=== PATIENT | female | born 1995 | race American Indian/Alaskan Native ===

== ENCOUNTER 2017-02-04 08:17 | Emergency (ER) | payer OTHER ==
[2017-02-04 08:24] VITALS: BP 140/96
[2017-02-04] MEDS ORDERED: FLEXERIL PO ONE (10:28)
[2017-02-04] MEDS ORDERED: TORADOL IM ONE (10:28)
--- NOTE | 2017-02-04 18:05 | Emergency Department Report ---
Entered by LILIA UMAÑA, acting as scribe for SAMUEL MOHR PA. ED Neck Pain/Injury HPI - General Chief Complaint: Neck Pain/Injury Stated Complaint: LEFT SIDED PAIN Time Seen by Provider: 02/04/17 09:54 Mode of arrival: Ambulatory Limitations: No Limitations - History of Present Illness Initial Comments: 21 y/o female, with no PMHx, presents c/o left sided neck, back and hip pain that started 1 week ago. Sx include normal PO intake but pt denies recent trauma or injury, n/v, abd pain, fever or chills. OTC medication taken includes mucinex. No additional Sx. MD Complaint: neck pain, other (left sided back and hip pain) -: week(s) (1) Place: home Radiation: left lateral Severity: mild Severity scale (0 -10): 3 Quality: aching Consistency: constant Improves With: none Worsens With: none Context: unknown Associated Symptoms: none - Related Data Previous Rx's Medication Instructions Recorded Last Taken Type Cyclobenzaprine [Flexeril 10 MG 10 mg PO QHS #24 tablet 02/04/17 Unknown Rx TAB] Naproxen [Naprosyn] 500 mg PO BID #30 tablet 02/04/17 Unknown Rx Allergies Allergy/AdvReac Type Severity Reaction Status Date / Time No Known Allergies Allergy Verified 02/04/17 08:25 ED Review of Systems Comment: All other systems reviewed and negative Constitutional: other (normal PO intake). denies: chills, fever Respiratory: denies: cough, shortness of breath Cardiovascular: denies: chest pain Gastrointestinal: denies: abdominal pain, nausea, vomiting Musculoskeletal: back pain, other (left sided neck pain and hip pain) Neurological: denies: headache, weakness, numbness ED Past Medical Hx - Past Medical History Previous Medical History?: No - Surgical History Past Surgical History?: No - Social History Smoking Status: Never Smoker Substance Use Type: Alcohol - Medications Home Medications: Home Medications Medication Instructions Recorded Confirmed Last Taken Type Cyclobenzaprine [Flexeril 10 MG 10 mg PO QHS #24 tablet 02/04/17 Unknown Rx TAB] Naproxen [Naprosyn] 500 mg PO BID #30 tablet 02/04/17 Unknown Rx ED Physical Exam - General Limitations: No Limitations - Other Other exam information: GENERAL: Patient is alert and oriented x 3. No apparent distress, normal gait, atraumatic. HEAD: Head is normocephalic and atraumatic. EYES: Extraocular movements are intact. EARS: Symmetrical, atraumatic, non tender. NOSE: Nose symmetrical, nontender. Nares appeared normal. MOUTH:Mouth is well hydrated and without lesions. NECK: Supple. Non edematous, no carotid bruits. No lymphadenopathy or thyromegaly. Full ROM, no C-spine tenderness. Pain with palpation of the trapezius muscle. BACK: TTP to latissimus dorsi, no CVA tenderness. LUNGS: Symmetrical with respiration. No wheezing, rales or crackles, CTAB. HEART: Regular rate and rhythm with normal S1/S2 present. No murmurs, rubs, or gallops. EXTREMITIES/MUSCULOSKELETAL: No cyanosis, clubbing, rash, lesions or edema. Full ROM bilaterally. UE/LE Pulses 2+ bilaterally. 5/5 Strength in all extremities. SKIN: Warm and dry. No lesions, ulceration or induration present NEUROLOGIC: No focal deficit. ED Course Vital Signs 02/04/17 08:21 Temperature 98.4 F Pulse Rate 87 Respiratory 16 Rate Blood Pressure 140/96 O2 Sat by Pulse 100 Oximetry ED Medical Decision Making - Medical Decision Making 21 y/o female, with no PMHx, presents with neck strain ED course: Patient received Flexeril and Toradol in ED. Discussed adequate rest and heat therapy 3 times a day with patient. Vital signs stable patient is in no acute or respiratory distress. Discussed findings with patient about diagnoses. Discussed treatment in ED with patient Discussed with patient to follow up with PCP as referred, and to return to the ED if his symptoms return or worsen. Patient states understanding and will follow instructions. Vital signs stable, patient is in no acute distress. Pt verbally states she understands and will comply to follow up. ED Disposition Clinical Impression: Strain of muscle, fascia and tendon at neck level, initial encounter Disposition: - TO HOME OR SELFCARE Is pt being admited?: No Does the pt Need Aspirin: No Condition: Stable Instructions: Muscle Strain (ED), Trigger Point Pain (ED), Musculoskeletal Pain (ED), Heat Pack Application (ED) Prescriptions: Cyclobenzaprine [Flexeril 10 MG TAB] 10 mg PO QHS #24 tablet Naproxen [Naprosyn] 500 mg PO BID #30 tablet Referrals: PRIMARY CARE,MD [Primary Care Provider] - 3-5 Days [facility] [Outside] - 3-5 Days [facility] [Outside] - 3-5 Days [facility] [Outside] - 3-5 Days Forms: Accompanied Note, Work/School Release Form(ED) Time of Disposition: 10:34 This documentation as recorded by the CHASIDY baez RYAN,accurately reflects the service I personally performed and the decisions made by ,SAMUEL MOHR PA.
== END 2017-02-04 10:49 | disposition home or self-care (01) ==
LOC: ED 08:17
DX: S16.1XXA Strain of muscle, fascia and tendon at neck level, initial encounter (principal); X58.XXXA Exposure to other specified factors, initial encounter; Y93.9 Activity, unspecified; Y92.9 Unspecified place or not applicable; Y99.8 Other external cause status
CPT/HCPCS: 96372; 99282; J1885